=== PATIENT | male | born 1990 | race American Indian/Alaskan Native ===

== ENCOUNTER 2022-06-13 17:49 | Emergency (ER) | payer SELFPAY ==
[2022-06-13 18:36] VITALS: BP 139/88
== END 2022-06-13 23:40 | disposition left against medical advice (07) ==
LOC: ED 17:49
DX: R50.9 Fever, unspecified (principal); R11.2 Nausea with vomiting, unspecified; Z53.21 Procedure and treatment not carried out due to patient leaving prior to being seen by health care provider